=== PATIENT | male | born 1975 ===

== ENCOUNTER 2025-02-18 10:00 | Inpatient (IN) | payer OTHER ==
[~2025-02-18] VITALS: Ht 165.1 cm; Wt 104.3 kg
[2025-02-18] MEDS ORDERED: COZAAR25 MG PO (11:29)
[2025-02-18 11:33] VITALS: BP 155/90
[2025-02-26] MEDS ORDERED: METRONIDAZOLE/SODIUM CHLORIDE 500 MG/100 ML PIGGYBACK IV ONE (06:57)
[2025-02-26] MEDS ORDERED: SUGAMMADEX SODIUM 200 MG/2 ML VIAL IV ONE (08:22)
[2025-02-26] MEDS ORDERED: 0.9 % SODIUM CHLORIDE 1,000 ML IV SCH (10:15)
[2025-02-26] MEDS ORDERED: MORPHINE SULFATE 4 MG/ML CARTRIDGE IV PRN (10:15)
[2025-02-26] MEDS ORDERED: DEXTROSE 50 % IN WATER 0.5 G/ML DISP.SYRIN IV PRN (10:15)
[2025-02-26] MEDS ORDERED: ONDANSETRON HCL 2 MG/ML VIAL IV PRN (10:15)
[2025-02-26] MEDS ORDERED: OxyCODONE HCL 5 MG TABLET (ROXICODONE) PO PRN (10:15)
[2025-02-26] MEDS ORDERED: MORPHINE SULFATE 4 MG/ML VIAL IV ONE ×2 (10:50→11:20)
[2025-02-26] MEDS ORDERED: hydrALAZINE HCL 20 MG VIAL ONE (12:15)
[2025-02-26] MEDS ORDERED: hydrALAZINE HCL 20 MG VIAL IV PRN (12:30)
[2025-02-26] MEDS ORDERED: HYOSCYAMINE SULFATE 0.125 MG TAB.SUBL SL SCH (13:00)
[2025-02-26] MEDS ORDERED: ACETAMINOPHEN 500 MG GEL..CAP PO SCH (14:00)
[2025-02-26 14:59] VITALS: BP 200/80; O2SAT 97
[2025-02-26] MEDS ORDERED: GABAPENTIN 300 MG CAPSULE PO SCH (17:00)
[2025-02-26] MEDS ORDERED: METRONIDAZOLE/SODIUM CHLORIDE 500 MG/100 ML PIGGYBACK IV SCH ×2 (17:00)
[2025-02-26 17:01] VITALS: BP 198/79; O2SAT 97
[2025-02-26] MEDS ORDERED: LABETALOL HCL 100 MG/20 ML ML ONE (18:53)
[2025-02-26] MEDS ORDERED: LABETALOL HCL 100 MG/20 ML ML IV NR (19:05)
[2025-02-26] MEDS ORDERED: CELECOXIB 200 MG CAPSULE PO SCH (21:00)
[2025-02-26] MEDS ORDERED: FAMOTIDINE/PF 20 MG/2 ML VIAL IV PUSH SCH (21:00)
[2025-02-27] VITALS: BP 172/86; O2SAT 95
[2025-02-27 06:50] LABS: ALBUMIN 3.7 gm/dL (3.4-5.0); CREATININE SERUM 0.86 mg/dL (0.70-1.30); GFR 94.52; MAGNESIUM 2.3 mg/dL (1.8-2.4); PHOSPHOROUS 2.5 mg/dL (2.5-4.9); POTASSIUM 3.96 mEq/L (3.5-5.1)
[2025-02-27 07:10] LABS: BASO % 0.1 % (0.1-1.2); HEMATOCRIT 42.6 % (40.1-51.0); LYMPH # 1.19 (1.18-3.74); LYMPH % 5.9 % (19.3-53.1); MEAN CORPUSCULAR HEMOGLOBIN 25.1 pg (25.6-32.2); MONO # 1.05 (0.24-0.82); MONO % 5.2 % (4.7-12.5); NEUT # 17.95 (1.56-6.13); NEUT % 88.3 % (34.0-71.1); PLATELET COUNT 398 K/uL (163-369); RED BLOOD COUNT 5.57 M/uL (4.63-6.08); RED CELL DISTRIBUTION WIDTH 14.5 % (11.6-14.4)
[2025-02-27 08:00] VITALS: BP 198/90; O2SAT 96
[2025-02-27] MEDS ORDERED: LOSARTAN POTASSIUM 25 MG TABLET PO SCH (09:00)
[2025-02-27] MEDS ORDERED: ENOXAPARIN SODIUM 40 MG/0.4 ML SYRINGE SUBCUTANEO SCH (17:00)
[2025-02-27 18:40] VITALS: BP 149/87; O2SAT 98
[2025-02-28 01:00] VITALS: BP 159/94; O2SAT 98
[2025-02-28 08:27] VITALS: BP 147/78; O2SAT 99
[2025-02-28] MEDS ORDERED: ENOXAPARIN SODIUM 40 MG/0.4 ML SYRINGE SUBCUTANEO SCH (09:00)
[2025-02-28 16:00] VITALS: BP 132/81; O2SAT 98
[2025-03-01 00:49] VITALS: BP 138/85; O2SAT 100
[2025-03-01 08:16] VITALS: BP 149/80; O2SAT 99
[2025-03-01] MEDS ORDERED: CELECOXIB200 MG PO (12:14)
[2025-03-01] MEDS ORDERED: NEURONTIN300 MG PO (12:14)
[2025-03-01] MEDS ORDERED: INTESTINEX680 M1 PO (12:14)
== END 2025-03-01 16:00 | disposition home or self-care (01) | DRG 330 ==
LOC: O/R 02-26 05:04 → SURH 02-26 05:04
PROVIDERS: ADMIT Surgery; ATTEND Surgery
PROC: 0DBP4ZZ Excision of Rectum, Percutaneous Endoscopic Approach (ICD-10-PCS; 2025-02-26)
PROC: 07BC4ZZ Excision of Pelvis Lymphatic, Percutaneous Endoscopic Approach (ICD-10-PCS; 2025-02-26)
PROC: 0DJD8ZZ Inspection of Lower Intestinal Tract, Via Natural or Artificial Opening Endoscopic (ICD-10-PCS; 2025-02-26)
PROC: 0DTN4ZZ Resection of Sigmoid Colon, Percutaneous Endoscopic Approach (ICD-10-PCS; principal; 2025-02-26 16:45)
DX: C18.7 Malignant neoplasm of sigmoid colon (principal); C77.5 Secondary and unspecified malignant neoplasm of intrapelvic lymph nodes; R59.0 Localized enlarged lymph nodes

== ENCOUNTER 2025-04-13 05:50 | Day surgery (SDC) | payer OTHER ==
[~2025-04-13 05:50] MED LIST: CELECOXIB200 MG PO; COZAAR25 MG PO; INTESTINEX680 M1 PO; NEURONTIN300 MG PO
[2025-04-13] MEDS ORDERED: TRAM1TAB98 PO (08:58)
[2025-04-13] MEDS ORDERED: LIDOCAINE HCL 1%/EPINEPHRINE 20ML VIAL IJ ONE (09:00)
[2025-04-13] MEDS ORDERED: CEFAZOLIN SODIUM 1,000 MG VIAL IV ONE (09:00)
[2025-04-13] MEDS ORDERED: BUPIVACAINE HCL 30 ML VIAL IJ ONE (09:00)
[2025-04-13] MEDS ORDERED: HEPARIN SODIUM,PORCINE 500 UNITS/5 ML VIAL IV ONE (09:00)
== END 2025-04-13 14:30 | disposition home or self-care (01) ==
LOC: CIR.AMB 05:50
PROVIDERS: ATTEND Surgery
DX: C18.7 Malignant neoplasm of sigmoid colon (principal); C77.5 Secondary and unspecified malignant neoplasm of intrapelvic lymph nodes
CPT/HCPCS: 36561; C1751